=== PATIENT | female | born 1990 | race Caucasian/White ===

== ENCOUNTER 2021-04-22 10:45 | Observation (INO) | payer MEDICAID, SELFPAY ==
[~2021-04-22] VITALS: Ht 167.6 cm; Wt 90.7 kg
[2021-04-22 12:39] VITALS: BP 140/90
[2021-04-22 13:32] LABS: BASOPHILS % (AUTO) 0.3 % (0.0-2.0); EOSINOPHILS # (AUTO) 0.1 K/uL (0-0.4); EOSINOPHILS % (AUTO) 0.7 % (0.0-4.0); HEMOGLOBIN 10.1 g/dL (12.0-16.0); LYMPHOCYTES # (AUTO) 1.8 K/uL (2.5-16.5); LYMPHOCYTES % (AUTO) 17.8 % (20.5-51.1); MEAN CORPUSCULAR HEMOGLOBIN 28 pg (27-31); MEAN CORPUSCULAR HGB CONC 33 g/dL (33-37); MEAN CORPUSCULAR VOLUME 85.3 fL (80-94); MONOCYTES # (AUTO) 0.5 K/uL (0.8-1.0); MONOCYTES % (AUTO) 5.2 % (1.7-9.3); NEUTROPHILS # (AUTO) 7.6 K/uL (1.8-7.7); PLATELET COUNT (AUTO) 371 K/uL (140-450); RED BLOOD CELL COUNT(AUTO) 3.64 MIL/uL (4.20-5.40); RED CELL DISTRIBUTION WIDTH 14.9 % (11.6-13.7)
[2021-04-22 13:46] LABS: ALBUMIN 2.4 g/dL (3.4-5.0); ANION GAP 12.1 (8-16); CREATININE 0.7 mg/dL (0.6-1.3); POTASSIUM 4.1 mmol/L (3.5-5.1); TOTAL BILIRUBIN 0.2 mg/dL (0.0-1.0); URIC ACID 5.8 mg/dL (2.6-7.2)
[2021-04-22 14:00] LABS: BARBITURATE, URINE NEGATIVE ng/ml (NEG <=200); BENZODIAZEPINE, URINE NEGATIVE ng/mL (NEG <=200); CANNABINOID, URINE POSITIVE ng/mL (NEG <=50); COCAINE, URINE NEGATIVE ng/mL (NEG <=300)
[2021-04-22 14:01] LABS: OPIATE, URINE NEGATIVE ng/mL (NEG <=2000); PHENCYCLIDINE SCREEN,URINE NEGATIVE ng/mL (NEG <=25)
[2021-04-22 15:22] LABS: URINE TOTAL PROTEIN 7.7 mg/dL (0-12)
== END 2021-04-22 15:00 | disposition home or self-care (01) ==
LOC: MLD 10:45
PROVIDERS: ADMIT Obstetrics & Gynecology; ATTEND Obstetrics & Gynecology
DX: O26.893 Other specified pregnancy related conditions, third trimester (principal); R03.0 Elevated blood-pressure reading, without diagnosis of hypertension; Z20.822 Contact with and (suspected) exposure to COVID-19; O99.323 Drug use complicating pregnancy, third trimester; F12.90 Cannabis use, unspecified, uncomplicated; F15.90 Other stimulant use, unspecified, uncomplicated; O99.333 Smoking (tobacco) complicating pregnancy, third trimester; F17.200 Nicotine dependence, unspecified, uncomplicated; Z3A.34 34 weeks gestation of pregnancy; Z59.00 Homelessness unspecified
CPT/HCPCS: 36415; 76805; 80053; 80305; 82570; 84550; 85025; 85384; 86886; 86900; 86901; 87426; C1758; G0378; Q0092

== ENCOUNTER 2021-05-18 02:50 | Inpatient (IN) | payer MEDICAID, SELFPAY ==
[~2021-05-18] VITALS: Ht 167.6 cm; Wt 90.7 kg
[2021-05-18] MEDS: LACTATED RINGERS 1,000 ML IV SCH ×2 (00:41→04:50)
[2021-05-18] MEDS ORDERED: LABETALOL 100 MG/20 ML VIAL IVP SCH ×3 (03:25→07:40)
[2021-05-18] MEDS ORDERED: MAG SULF 2000 MG/WATER PREMIX 100 ML IV ONE ×2 (03:30→03:45)
[2021-05-18] MEDS ORDERED: OXYTOCIN 20 UNITS in LACTATED RINGERS 1,000 ML IV PRN (03:40)
[2021-05-18] MEDS ORDERED: MAG SULF 2000 MG/WATER PREMIX 100 ML IV SCH (03:50)
[2021-05-18 04:05] LABS: PROTHROMBIN TIME 9.1 secs (10.8-13.4)
[2021-05-18 04:11] LABS: ALBUMIN 2.4 g/dL (3.4-5.0); ANION GAP 11.1 (8-16); CARBON DIOXIDE 20.6 mmol/L (21-32); CREATININE 0.8 mg/dL (0.6-1.3); POTASSIUM 3.7 mmol/L (3.5-5.1); TOTAL BILIRUBIN 0.2 mg/dL (0.0-1.0)
[2021-05-18] MEDS ORDERED: OXYTOCIN 20 UNITS/LR PREMIX 1,000 ML IV ONE (04:31)
[2021-05-18] MEDS ORDERED: AMPICILLIN 2,000 MG VIAL ONE (04:45)
[2021-05-18 04:48] LABS: BASOPHILS % (AUTO) 0.1 % (0.0-2.0); EOSINOPHILS # (AUTO) 0.1 K/uL (0-0.4); EOSINOPHILS % (AUTO) 0.6 % (0.0-4.0); HEMATOCRIT 29.5 % (36-48); HEMOGLOBIN 9.7 g/dL (12.0-16.0); LYMPHOCYTES # (AUTO) 2.1 K/uL (2.5-16.5); LYMPHOCYTES % (AUTO) 19.9 % (20.5-51.1); MEAN CORPUSCULAR HEMOGLOBIN 27 pg (27-31); MEAN CORPUSCULAR HGB CONC 33 g/dL (33-37); MEAN CORPUSCULAR VOLUME 83.1 fL (80-94); MONOCYTES # (AUTO) 0.6 K/uL (0.8-1.0); MONOCYTES % (AUTO) 5.8 % (1.7-9.3); NEUTROPHILS # (AUTO) 7.9 K/uL (1.8-7.7); NEUTROPHILS % (AUTO) 73.6 % (42.2-75.2); PLATELET COUNT (AUTO) 360 K/uL (140-450); RED BLOOD CELL COUNT(AUTO) 3.55 MIL/uL (4.20-5.40); RED CELL DISTRIBUTION WIDTH 15.5 % (11.6-13.7); WHITE BLOOD COUNT (AUTO) 10.7 K/uL (4.8-10.8)
[2021-05-18 05:46] LABS: APPEARANCE,URINE CLEAR (CLEAR); BILIRUBIN,URINE NEGATIVE (NEGATIVE); BLOOD, URINE 1+ (NEGATIVE); COLOR,URINE YELLOW (YELLOW); LEUKOCYTE ESTERASE ,URINE TRACE (NEGATIVE); NITRITE, URINE NEGATIVE (NEGATIVE); UGLUCOSE NEGATIVE (NEGATIVE)
[2021-05-18 05:50] LABS: RBC,URINE 0-5 /HPF (0-5); WBC,URINE 0-5 /HPF (0-5)
[2021-05-18 05:54] LABS: BARBITURATE, URINE NEGATIVE ng/ml (NEG <=200); BENZODIAZEPINE, URINE NEGATIVE ng/mL (NEG <=200)
[2021-05-18 05:55] LABS: CANNABINOID, URINE POSITIVE ng/mL (NEG <=50); COCAINE, URINE NEGATIVE ng/mL (NEG <=300); OPIATE, URINE NEGATIVE ng/mL (NEG <=2000); PHENCYCLIDINE SCREEN,URINE NEGATIVE ng/mL (NEG <=25)
[2021-05-18] MEDS ORDERED: OXYTOCIN 10 UNITS/ML VIAL ONE (06:45)
[2021-05-18] MEDS ORDERED: hydrALAZINE 20 MG/ML VIAL ONE (07:02)
[2021-05-18] MEDS ORDERED: hydrALAZINE 20 MG/ML VIAL IVP SCH (07:20)
--- NOTE | 2021-05-18 09:23 | NUR ---
PATIENT HAS BEEN SCREENED AND CATEGORIZED LOW NUTRITION RISK. PATIENT WILL BE SEEN WITHIN 7 DAYS OF ADMISSION. 05/24/21 REVIEWED BY BARBI LANG [address]
[2021-05-18 09:52] VITALS: BP 190/97
[2021-05-18] MEDS: LORazepam 2 MG/ML VIAL IM/IVP PRN ×2 (14:39→23:02)
[2021-05-18] MEDS: MAG SULF 20 GM/H2O PREMIX DRIP 500 ML IV SCH (14:50)
--- NOTE | 2021-05-18 17:41 | NUR ---
PATIENT IS A 30-YEAR-OLD FEMALE ADMITTED DUE TO PATIENT BEING IN LABOR WITH LIMITED PRE- CARE, PREECLAMPSIA AND SYPHILIS COMPLICATIONS. SW MEET WITH PATIENT AT BEDSIDE TO DISCUSS AND GATHER COLLATERAL INFORMATION, SW EDUCATED AND INFORM PATIENT ABOUT RESOURCES AVAILABLE TO HER IN THE AREA. SW DISCUSS AND EXPLORE SUBSTANCE ABUSE RESOURCES WELL CALL [facility] RESIDENTIAL FOR WOMAN IN [place]. PER PATIENT SHE DECLINED THE INFORMATION HOWEVER, SW LEFT HER WITH INTAKE DEPARTMENT INFORMATION IN CASE PATIENT WILL WANT TO CALL ON HER OWN AFTER HER DC FROM [facility]. PATIENT CONFIRM HAVING AN ISSUE WITH SUBSTANCES AND ADDICTION TO METH AND MARIJUANA. HOWEVER; PATIENT WAS NOT COOPERATIVE AND REFUSED TO GET SERVICES OR TREATMENT AT THE TIME. STATED THAT THIS IS NOT THE FIRST TIME SHE HAD A CASE WITH CPS AND REPORTED HAVING TWO OTHER CHILDREN TAKEN AWAY FROM HER IN THE PAST. PER PATIENT SHE IS BEEN STRUGGLING WITH ISSUES OVER 10 YEARS WITH ADDICTIONS AND MENTAL HEALTH. PATIENT STATED THAT HE HAS BEEN INTO PROGRAMS IN THE [place] HOWEVER, SHE RELAPSE AND HAS NOT ATTEMPTED TO GET SOBER AGAIN FOR A WHILE. PER PATIENT SHE SHE HAS TWO OTHER YOUNGER CHILDREN ONE 13 YR OLD GIRL LIVING WITH HER MOTHER AND HER SISTER AND A 6 YEAR-OLD BOY LIVING WITH A COUSIN'S CUSTODY AND MATERNAL GRANDMOTHER CUSTODY. PATIENT REPORTED SHE HAD A CPS CASE CLOSE AND SHE UNDERSTANDS THAT NOW CPS/ENTRY LEVEL ASSISTANT MANAGER WILL BE INVOLVED IN A NEW CASE FOR BABY. PATIENT WAS THANKFUL FOR THE INFORMATION PROVIDED BY THESE METAL RIVETING MACHINE OPERATOR; HOWEVER SHE REFUSED SOME OF THOSE RESOURCES. SW DISCUSSED WITH PATIENT ABOUT CPS INVOLVEMENT WHEN A BABY IS EXPOSED TO SUBSTANCES IN [place]. PATIENT TOOK INFORMATION AND UNDERSTOOD OFFSET PLATE MAKER EDUCATED MOTHER ON THE STEPS AND INVOLVEMENT OF CPS/ENTRY LEVEL ASSISTANT MANAGER FOLLOWING UP WITH MOTHER. PATIENT ACKNOWLEDGE THE INFORMATION PROVIDED AND STATED THAT SHE WILL TRY TO COOPERATE WITH CPS WHEN SHE IS DC FROM [facility]. PER PATIENT SHE HAS NO A.D AND SW PROVIDED HER WITH INFORMATION PACKET. PATIENT ALSO STATED THAT HAS NO DME AND NO ISSUES GETTING OR TAKING HER MEDICATIONS PRESCRIBED BY MD. PATIENT ALSO STATED THAT SHE WILL RETURN TO A MOBIL HOME SHE STAYS IN [place] WITH A FRIED THAT ALLOWS HER TO STAY THERE. SHE REPORTED HAVING A CAR PARK WHERE ALL HER STUFF IS IN THE PARK IN [place], SHE WILL ATTEMPT TO GET THERE TO DRIVE TO HER FRIENDS MOBILE HOME IN [place]. SW ENDED THE VISIT WITH PATIENT AND WILL FOLLOW UP NEEDED.
[2021-05-19] MEDS: MAG SULF 20 GM/H2O PREMIX DRIP 500 ML IV SCH (00:40)
[2021-05-19 08:07] LABS: HEPATITIS B SURFACE ANTIGEN Negative (Negative)
[2021-05-19 09:22] LABS: BASOPHILS % (AUTO) 0.4 % (0.0-2.0); EOSINOPHILS # (AUTO) 0.1 K/uL (0-0.4); EOSINOPHILS % (AUTO) 0.7 % (0.0-4.0); HEMATOCRIT 24.3 % (36-48); LYMPHOCYTES # (AUTO) 2.2 K/uL (2.5-16.5); LYMPHOCYTES % (AUTO) 19.6 % (20.5-51.1); MEAN CORPUSCULAR HEMOGLOBIN 27 pg (27-31); MEAN CORPUSCULAR HGB CONC 33 g/dL (33-37); MEAN CORPUSCULAR VOLUME 81.8 fL (80-94); MONOCYTES # (AUTO) 0.5 K/uL (0.8-1.0); MONOCYTES % (AUTO) 4.6 % (1.7-9.3); NEUTROPHILS # (AUTO) 8.4 K/uL (1.8-7.7); NEUTROPHILS % (AUTO) 74.7 % (42.2-75.2); PLATELET COUNT (AUTO) 406 K/uL (140-450); RED BLOOD CELL COUNT(AUTO) 2.97 MIL/uL (4.20-5.40); RED CELL DISTRIBUTION WIDTH 15.5 % (11.6-13.7); WHITE BLOOD COUNT (AUTO) 11.3 K/uL (4.8-10.8)
[2021-05-19] MEDS ORDERED: NIFEdipine 60 MG TABER PO SCH (14:00)
== END 2021-05-19 16:30 | disposition home or self-care (01) | DRG 560 ==
LOC: MLD 02:50
PROVIDERS: ADMIT Obstetrics & Gynecology; ATTEND Obstetrics & Gynecology
PROC: 10E0XZZ Delivery of Products of Conception, External Approach (ICD-10-PCS; principal; 2021-05-18)
PROC: 10907ZC Drainage of Amniotic Fluid, Therapeutic from Products of Conception, Via Natural or Artificial Opening (ICD-10-PCS; 2021-05-18)
DX: O14.14 Severe pre-eclampsia complicating childbirth (principal); Z37.0 Single live birth; D62 Acute posthemorrhagic anemia; O98.12 Syphilis complicating childbirth; O99.324 Drug use complicating childbirth; A53.9 Syphilis, unspecified; F17.200 Nicotine dependence, unspecified, uncomplicated; Z20.822 Contact with and (suspected) exposure to COVID-19; O71.82 Other specified trauma to perineum and vulva; F15.90 Other stimulant use, unspecified, uncomplicated; O99.334 Smoking (tobacco) complicating childbirth; F12.90 Cannabis use, unspecified, uncomplicated; Z59.00 Homelessness unspecified; Z3A.38 38 weeks gestation of pregnancy; O99.02 Anemia complicating childbirth
CPT/HCPCS: 36415; 59409; 80053; 80305; 81001; 83735; 84550; 85025; 85384; 85610; 85730; 86592; 86762; 86886; 86900; 86901; 87340; 90715; J0290; J0360; J2060; J2590; J3475; J3490

== ENCOUNTER 2023-05-19 10:42 | Emergency (ER) | payer SELFPAY ==
[~2023-05-19] VITALS: Ht 167.6 cm; Wt 83.0 kg
[2023-05-19 11:00] VITALS: BP 140/86; PULSE 95; RESP 20; TEMP 97.6; O2SAT 100
[2023-05-19 13:41] LABS: BASOPHILS % (AUTO) 0.1 % (0.0-2.0); EOSINOPHILS % (AUTO) 0.1 % (0.0-4.0); HEMATOCRIT 37.1 % (36-48); HEMOGLOBIN 12.6 g/dL (12.0-16.0); LYMPHOCYTES # (AUTO) 0.5 K/uL (2.5-16.5); LYMPHOCYTES % (AUTO) 6.2 % (20.5-51.1); MEAN CORPUSCULAR HEMOGLOBIN 31 pg (27-31); MEAN CORPUSCULAR HGB CONC 34 g/dL (33-37); MEAN CORPUSCULAR VOLUME 89.8 fL (80-94); MONOCYTES # (AUTO) 0.2 K/uL (0.8-1.0); MONOCYTES % (AUTO) 2.4 % (1.7-9.3); NEUTROPHILS # (AUTO) 7.3 K/uL (1.8-7.7); NEUTROPHILS % (AUTO) 91.2 % (42.2-75.2); PLATELET COUNT (AUTO) 270 K/uL (140-450); RED BLOOD CELL COUNT(AUTO) 4.13 MIL/uL (4.20-5.40); WHITE BLOOD COUNT (AUTO) 8.1 K/uL (4.8-10.8)
[2023-05-19 13:53] VITALS: O2SAT 100
[2023-05-19 13:54] LABS: ALBUMIN 3.3 g/dL (3.4-5.0); ANION GAP 13.7 (8-16); CALCIUM 8.2 mg/dL (8.5-10.1); CARBON DIOXIDE 21.7 mmol/L (21-32); CREATININE 0.6 mg/dL (0.6-1.3); POTASSIUM 3.4 mmol/L (3.5-5.1); TOTAL BILIRUBIN 0.6 mg/dL (0.0-1.0)
[2023-05-19 15:52] VITALS: BP 135/88; PULSE 81; RESP 19; TEMP 98; O2SAT 100
== END 2023-05-19 15:52 | disposition home or self-care (01) ==
LOC: MED 10:42
DX: O36.4XX0 Maternal care for intrauterine death, not applicable or unspecified (principal); O26.891 Other specified pregnancy related conditions, first trimester; R10.13 Epigastric pain; O99.331 Smoking (tobacco) complicating pregnancy, first trimester; O99.321 Drug use complicating pregnancy, first trimester; F12.90 Cannabis use, unspecified, uncomplicated; Z87.19 Personal history of other diseases of the digestive system; Z3A.10 10 weeks gestation of pregnancy
CPT/HCPCS: 36415; 76705; 76801; 80053; 81025; 83690; 84702; 85025; 86900; 86901; 99285; Q0092

== ENCOUNTER 2023-05-29 00:50 | Emergency (ER) | payer SELFPAY ==
[~2023-05-29] VITALS: Ht 167.6 cm; Wt 81.6 kg
[2023-05-29 01:00] VITALS: BP 130/77; PULSE 74; RESP 16; TEMP 98.1; O2SAT 97
[2023-05-29 02:04] LABS: BASOPHILS % (AUTO) 0.5 % (0.0-2.0); EOSINOPHILS # (AUTO) 0.1 K/uL (0-0.4); EOSINOPHILS % (AUTO) 1.4 % (0.0-4.0); HEMATOCRIT 30.9 % (36-48); HEMOGLOBIN 10.3 g/dL (12.0-16.0); LYMPHOCYTES # (AUTO) 2.6 K/uL (2.5-16.5); LYMPHOCYTES % (AUTO) 37.4 % (20.5-51.1); MEAN CORPUSCULAR HEMOGLOBIN 30 pg (27-31); MEAN CORPUSCULAR HGB CONC 34 g/dL (33-37); MEAN CORPUSCULAR VOLUME 89.7 fL (80-94); MONOCYTES # (AUTO) 0.5 K/uL (0.8-1.0); MONOCYTES % (AUTO) 7.9 % (1.7-9.3); NEUTROPHILS # (AUTO) 3.6 K/uL (1.8-7.7); NEUTROPHILS % (AUTO) 52.8 % (42.2-75.2); PLATELET COUNT (AUTO) 281 K/uL (140-450); RED BLOOD CELL COUNT(AUTO) 3.44 MIL/uL (4.20-5.40); RED CELL DISTRIBUTION WIDTH 14.4 % (11.6-13.7); WHITE BLOOD COUNT (AUTO) 6.9 K/uL (4.8-10.8)
[2023-05-29 02:34] LABS: ALBUMIN 3.3 g/dL (3.4-5.0); CALCIUM 7.9 mg/dL (8.5-10.1); CARBON DIOXIDE 26.4 mmol/L (21-32); CREATININE 0.9 mg/dL (0.6-1.3); POTASSIUM 3.4 mmol/L (3.5-5.1); TOTAL BILIRUBIN 0.2 mg/dL (0.0-1.0); TOTAL PROTEIN, SERUM 6.4 g/dL (6.4-8.2)
[2023-05-29 03:00] VITALS: BP 130/77; PULSE 74; RESP 16; TEMP 98.1; O2SAT 97
== END 2023-05-29 03:00 | disposition home or self-care (01) ==
LOC: MED 00:50
DX: O03.9 Complete or unspecified spontaneous abortion without complication (principal); Z3A.10 10 weeks gestation of pregnancy
CPT/HCPCS: 36415; 76801; 80053; 84702; 85025; 86900; 86901; 99284; Q0092

== ENCOUNTER 2024-03-04 16:25 | Observation (INO) | payer SELFPAY ==
[~2024-03-04] VITALS: Ht 167.6 cm; Wt 81.6 kg
[2024-03-04 17:37] LABS: AMPHETAMINE, URINE NEGATIVE ng/ml (NEG <=1000); BARBITURATE, URINE NEGATIVE ng/ml (NEG <=200); BENZODIAZEPINE, URINE NEGATIVE ng/mL (NEG <=200); CANNABINOID, URINE POSITIVE ng/mL (NEG <=50); COCAINE, URINE NEGATIVE ng/mL (NEG <=300); OPIATE, URINE NEGATIVE ng/mL (NEG <=2000); PHENCYCLIDINE SCREEN,URINE NEGATIVE ng/mL (NEG <=25)
[2024-03-04 17:39] VITALS: BP 124/74; PULSE 107; RESP 18; TEMP 98.7
[2024-03-04 17:45] LABS: BILIRUBIN,URINE NEGATIVE (NEGATIVE); BLOOD, URINE TRACE-I (NEGATIVE); COLOR,URINE YELLOW (YELLOW); LEUKOCYTE ESTERASE ,URINE 2+ (NEGATIVE); NITRITE, URINE NEGATIVE (NEGATIVE); PROTEIN,URINE NEGATIVE (NEGATIVE); UGLUCOSE NEGATIVE (NEGATIVE)
[2024-03-04 17:46] LABS: APPEARANCE,URINE HAZY (CLEAR)
[2024-03-04 17:47] LABS: BACTERIA,URINE 1+ /HPF (None Seen); RBC,URINE 0-5 /HPF (0-5)
[2024-03-04 17:48] LABS: MUCUS,URINE None Seen /LPF (None Seen); SQUAMOUS EPITHELIAL CELL,UR 4-10 (MOD) /LPF (0-3 (FEW))
== END 2024-03-04 20:30 | disposition home or self-care (01) ==
LOC: MLD 16:25
PROVIDERS: ADMIT Obstetrics & Gynecology; ATTEND Obstetrics & Gynecology
DX: O26.892 Other specified pregnancy related conditions, second trimester (principal); R10.9 Unspecified abdominal pain; Z3A.28 28 weeks gestation of pregnancy; Z79.899 Other long term (current) drug therapy
CPT/HCPCS: 76815; 80305; 81001; 87086; 87653; G0378; Q0092